=== PATIENT | female | born 2000 | race American Indian/Alaskan Native ===

== ENCOUNTER 2021-06-01 21:46 | Emergency (ER) | payer OTHER ==
[~2021-06-01] VITALS: Ht 165.1 cm; Wt 56.8 kg
[2021-06-01 21:52] VITALS: TEMP 99
[2021-06-01 23:10] VITALS: BP 120/61; PULSE 81
== END 2021-06-01 23:12 | disposition home or self-care (01) ==
LOC: COL.ER 21:46
DX: B34.9 Viral infection, unspecified (principal); F41.9 Anxiety disorder, unspecified; F32.A Depression, unspecified; Z79.899 Other long term (current) drug therapy

== ENCOUNTER 2021-09-14 15:13 | Emergency (ER) | payer SELFPAY ==
[~2021-09-14] VITALS: Ht 165.1 cm; Wt 59.1 kg
[2021-09-14 15:25] VITALS: TEMP 98.4
[2021-09-14] MEDS ORDERED: FLEXERIL 1010 MG/TAB PO (16:43)
[2021-09-14] MEDS ORDERED: NAPROSYN500 MG PO (16:43)
[2021-09-14 17:47] VITALS: BP 121/83; PULSE 86
== END 2021-09-14 17:09 | disposition home or self-care (01) ==
LOC: COL.ER 15:13
DX: M54.9 Dorsalgia, unspecified (principal); R51.9 Headache, unspecified; V49.40XA Driver injured in collision with unspecified motor vehicles in traffic accident, initial encounter; Y92.481 Parking lot as the place of occurrence of the external cause